=== PATIENT | female | born 1975 | race Caucasian/White ===

== ENCOUNTER 2018-08-14 19:08 | Emergency (ER) | payer OTHER ==
[~2018-08-14] VITALS: Ht 172.7 cm; Wt 83.7 kg
--- NOTE | 2018-08-14 19:49 | NUR ---
PT TO XRAY
[2018-08-14 20:06] LABS: BASOPHILS # (AUTO) 0.05 x10^3/uL (0-0.1); BASOPHILS % (AUTO) 1 % (0-1); EOSINOPHILS # (AUTO) 0.13 x10^3/uL (0-0.4); EOSINOPHILS % (AUTO) 1 % (1-7); LYMPHOCYTES # (AUTO) 2.81 x10^3/uL (1-3.4); LYMPHOCYTES % (AUTO) 32 % (22-44); MD NO; MEAN CORPUSCULAR HEMOGLOBIN 29.9 pg (27.0-34.8); MEAN CORPUSCULAR HGB CONC 33.5 g/dL (32.4-35.8); MEAN CORPUSCULAR VOLUME 89.2 fL (80-100); MEAN PLATELET VOLUME 8.5 fL (7.4-10.4); MONOCYTES # (AUTO) 0.98 x10^3/uL (0.2-0.8); MONOCYTES % (AUTO) 11 % (2-9); NEUTROPHILS # (AUTO) 4.97 x10^3/uL (1.8-6.8); NEUTROPHILS % (AUTO) 56 % (42-75); PLATELET COUNT 307 x10^3/uL (130-400); RED BLOOD COUNT 4.71 x10^6/uL (3.82-5.3)
[2018-08-14 20:14] LABS: ALBUMIN 3.6 g/dL (3.4-5.0); ANION GAP 5 mmol/L (5-15); CALCIUM 8.5 mg/dL (8.5-10.1); CHLORIDE 112 mmol/L (98-107); CREATININE 0.87 mg/dL (0.55-1.02)
[2018-08-14 20:17] LABS: TROPONIN I < 0.015 ng/mL (0.000-0.045)
[2018-08-14] MEDS ORDERED: [UNRECOGNIZED DRUG - OTHER] PO (20:19)
[2018-08-14 20:44] VITALS: BP 100/64
--- NOTE | 2018-08-14 20:47 | NUR ---
Patient/Caregiver given discharge instructions and they have confirmed that they understand the instructions. Patient ambulatory with steady gait.
== END 2018-08-14 20:48 | disposition home or self-care (01) ==
LOC: ED 19:48
DX: M54.12 Radiculopathy, cervical region (principal); M62.838 Other muscle spasm; F17.200 Nicotine dependence, unspecified, uncomplicated
CPT/HCPCS: 36415; 72050; 80048; 82040; 84484; 85025; 93005; 99284

== ENCOUNTER 2020-01-21 16:23 | Emergency (ER) | payer OTHER ==
[~2020-01-21] VITALS: Ht 172.7 cm; Wt 97.9 kg
[~2020-01-21 16:23] MED LIST: [UNRECOGNIZED DRUG - OTHER] PO
--- NOTE | 2020-01-21 17:01 | NUR ---
Pt brought back from triage with chief complaint of general fatigue for 2 weeks, developed right sided pain about 1 week ago.
--- NOTE | 2020-01-21 17:30 | NUR ---
ISIAH MONAE AT BEDSIDE FOR EVALUATION.
--- NOTE | 2020-01-21 17:42 | NUR ---
PATIENT TAKEN TO IMAGING.
[2020-01-21 18:02] LABS: BASOPHILS # (AUTO) 0.03 x10^3/uL (0-0.1); BASOPHILS % (AUTO) 0 % (0-1); EOSINOPHILS # (AUTO) 0.18 x10^3/uL (0-0.4); EOSINOPHILS % (AUTO) 2 % (1-7); LYMPHOCYTES # (AUTO) 2.15 x10^3/uL (1-3.4); LYMPHOCYTES % (AUTO) 23 % (22-44); MD NO; MEAN CORPUSCULAR HEMOGLOBIN 29.7 pg (27.0-34.8); MEAN CORPUSCULAR HGB CONC 32.8 g/dL (32.4-35.8); MEAN CORPUSCULAR VOLUME 90.4 fL (80-100); MEAN PLATELET VOLUME 8.2 fL (7.4-10.4); MONOCYTES # (AUTO) 0.98 x10^3/uL (0.2-0.8); MONOCYTES % (AUTO) 10 % (2-9); NEUTROPHILS # (AUTO) 6.12 x10^3/uL (1.8-6.8); NEUTROPHILS % (AUTO) 65 % (42-75); PLATELET COUNT 370 x10^3/uL (130-400); RED BLOOD COUNT 4.94 x10^6/uL (3.82-5.3); RED CELL DISTRIBUTION WIDTH 15.9 % (9.6-15.2)
--- NOTE | 2020-01-21 18:10 | NUR ---
PATIENT SITTING IN GURNEY, CONNECTED TO MONITOR, VITAL SIGNS WITHIN NORMAL LIMITS, PATIENT REQUESTING WATER. CALL LIGHT WITHIN REACH.
[2020-01-21 18:13] LABS: ALBUMIN 3.6 g/dL (3.4-5.0); ANION GAP 4 mmol/L (5-15); CALCIUM 8.4 mg/dL (8.5-10.1); CHLORIDE 114 mmol/L (98-107)
[2020-01-21 18:42] LABS: FREE T4 (FREE THYROXINE) 1.27 ng/dL (0.76-1.46)
--- NOTE | 2020-01-21 19:05 | NUR ---
ASSUMED CARE FROM DAY RN'S. PATIENT STABLE
--- NOTE | 2020-01-21 19:36 | NUR ---
PRECEPTOR RN: CHART UP FOR RECHECK
--- NOTE | 2020-01-21 20:05 | NUR ---
PRECEPTOR RN: PT UPSET THAT HER LABS AND CHEST XRAY DID NOT SHOW ANYTHING. SHE IS DISCUSSING OPTIONS FOR GETTING TESTED FOR COVID WITH DR. RODRIGUEZ ALTHOUGH SHE HAS NO SYMPTOMS OF COVID AT THIS TIME.
[2020-01-21 20:08] VITALS: BP 118/64
--- NOTE | 2020-01-21 20:24 | NUR ---
Patient/Caregiver given discharge instructions and they have confirmed that they understand the instructions. Patient ambulatory with steady gait.
== END 2020-01-21 20:26 | disposition home or self-care (01) ==
LOC: ED 18:59
DX: M94.0 Chondrocostal junction syndrome [Tietze] (principal); R09.1 Pleurisy; R07.9 Chest pain, unspecified; F17.200 Nicotine dependence, unspecified, uncomplicated
CPT/HCPCS: 36415; 71046; 80048; 82040; 84439; 84443; 84481; 85025; 99284

== ENCOUNTER 2020-07-12 09:03 | Emergency (ER) | payer OTHER ==
[~2020-07-12] VITALS: Ht 172.7 cm; Wt 100.9 kg
[2020-07-12 09:07] VITALS: BP 149/77
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
[2020-07-12] MEDS ORDERED: KETOROLAC 30 MG/1 ML ONE (09:28)
[2020-07-12] MEDS ORDERED: KETOROLAC 30 MG/1 ML IM ONE (09:30)
--- NOTE | 2020-07-12 10:34 | NUR ---
Patient given discharge instructions and prescriptions and they have confirmed that they understand the instructions. Work note provided to patient. Patient ambulatory with steady gait from ED to private vehicle.
== END 2020-07-12 10:43 | disposition home or self-care (01) ==
LOC: ED 10:38
DX: S16.1XXA Strain of muscle, fascia and tendon at neck level, initial encounter (principal); M25.511 Pain in right shoulder; V98.8XXA Other specified transport accidents, initial encounter; Y93.89 Activity, other specified; Y92.488 Other paved roadways as the place of occurrence of the external cause; Y99.8 Other external cause status
CPT/HCPCS: 72125; 96372; 99284; J1885